=== PATIENT | female | born 1960 | race Caucasian/White ===

== ENCOUNTER 2023-08-11 00:06 | Emergency (ER) | payer OTHER, SELFPAY ==
[2023-08-11 00:18] VITALS: BP 108/80
[2023-08-11 00:51] LABS: % Basophils 0.5 % (0-2); % Eosinophils 1.3 % (0-6); % Immature Granulocytes 1.1 % (0-0.5); % Lymphocytes 23.2 % (20.5-51.1); % Monocytes 9.1 % (1.7-9.3); % Neutrophils 64.8 % (42.2-75.2); Absolute Eosinophils 0.1 10^3/uL (0-0.7); Absolute Lymphocytes 0.9 10^3/uL (1.2-3.4); Absolute Monocytes 0.3 10^3/uL (0.1-0.6); Absolute Neutrophils 2.4 10^3/uL (1.4-6.5); Hematocrit 32.2 % (37.0-47.0); Hemoglobin 10.9 g/dL (12.0-16.0); Mean Corp Hgb Conc. 33.9 g/dL (33.0-37.0); Mean Corpuscular Hgb 28.5 pg (27.0-31.0); Mean Corpuscular Volume 84.1 fL (81.0-99.0); Mean Platelet Volume 10.8 fL (7.4-10.4); Nucleated Red Blood Cells % 0 %; Platelet Count 162 10^3/uL (130-400); Red Blood Cell Count 3.83 10^6/uL (4.20-5.40); Red Cell Dist. Width 13.6 % (11.5-14.5); White Blood Cell Count 3.8 10^3/uL (4.8-10.8)
[2023-08-11 00:58] LABS: ALT (SGPT) 18 U/L (0-35); AST (SGOT) 30 U/L (14-36); Albumin 3.8 g/dl (3.5-5.0); Alkaline Phosphatase 67 U/L (38-126); Blood Urea Nitrogen 18 mg/dl (7-17); Calcium 9.3 mg/dl (8.4-10.2); Carbon Dioxide 26 mmol/L (22-30); Chloride 104 mmol/L (98-107); Glucose 94 mg/dl (70-99); Potassium 4.1 mmol/L (3.5-5.1); Sodium 135 mmol/L (135-145); Total Protein 6.5 g/dl (6.3-8.2); eGFR > 60.00
[2023-08-11 00:59] LABS: Lactic Acid 0.7 mmol/L (0.7-2.0)
[2023-08-11 01:26] VITALS: BP 129/68
[2023-08-11 01:30] VITALS: BMI 26.0
--- NOTE | 2023-08-11 01:53 | ED.GENMED ---
History of Present Illness
<LYLE Robbins - Last Filed: 08/11/23 05:36>
General
Chief Complaint: Fever
Source: patient
Exam Limitations: none
Time Seen by Provider: 08/11/23 01:20
Nursing documentation reviewed up to this point in time: agreed with
Travel History
Have you had any contact with someone who has COVID-19?: No
Do you have any symptoms of coronavirus? Fever > 100 degrees, chills, cough, shortness of breath, sore throat, loss of taste or smell, muscle aches, or headache?: No
History of Present Illness
History of Present Illness:
Patient is 62 y/o female with TKA 3 days for OA ago presenting with new onset fever x 1 day. patient admits that tmax taken at home was 100.4. Patient admits that she has had associated chills. Patient states she has had an onset of a cough that she
describes as 'loose'. patient states she has been feeling nasal congestion with clear rhinorrhea. patient admits to mild nausea. Patient denies no swelling of her lower extremity out side of her knee, patient denies SOB, V/D/C, abdominal pain.
Patents current temperature is 100.1.
Past History
<LYLE Robbins - Last Filed: 08/11/23 05:36>
Past History
ED Past Medical History: HTN and Hypothyroidism
Social History
Tobacco: Non-smoker
Alcohol: Occasional
Drug: None
Personal:
Living: with family
Review of Systems
<LYLE Robbins - Last Filed: 08/11/23 05:36>
Review of Systems
Constitutional: Reports fever and chills
EENT: Reports sore throat and runny nose (clear rhinorrhea)
Respiratory: Reports cough
ABD/GI: Reports nausea
Musculoskeletal: Reports joint swelling and other (post op TKA )
Phy Exam
<LYLE Robbins - Last Filed: 08/11/23 05:36>
Physical Exam
Physical Exam:
mild erythema noted around incision bandage
ENT Exam
Additional ENT: nasal congestion with clear rhinorrhea
Musculoskeletal Exam
Musculoskeletal Exam: joint swelling
Skin Exam
Skin Exam: warm/dry, erythema (R knee outside are of bandage ) and warmth (R knee )
Course
<LYLE Robbins - Last Filed: 08/11/23 05:36>
Orders/Labs/Results
Orders:
Orders
08/11/23 00:22
Electrocardiogram (*1) Urgent
Reason for Study: Other
Other Reason for Exam: Possible Sepsis
08/11/23 00:23
EKG- Treatment ONCE
CR Chest - 2 Views Urgent
Comment:
Reason For Exam: suspected infection
08/11/23 00:33
Complete Blood Count/With Diff Urgent
Comprehensive Metabolic Panel Urgent
Lactic Acid Q4H
Comment: ON ICE, CANCEL 2ND ORDER IF FIRST LACTIC ACID LEVEL <2
Blood Culture Q30M
FADY Source: Blood/Venous
Specimen Description:
Comment: FROM 2 SEPARATE SITES
08/11/23 01:00
Blood Culture Q30M
FADY Source: Blood/Venous
Specimen Description:
Comment: FROM 2 SEPARATE SITES
08/11/23 02:10
COVID-19 Antigen Urgent
Source: Nasal Swab
Influenza A+B Rapid Molecular Urgent
FADY Source: Nasal Swab
Specimen Description:
08/11/23 03:21
Ipratropium/Albuterol Sulfate [Duoneb] 3 ml INH R NOW ONE
Abnormal Lab Results
08/11/23
00:33
WBC 3.8 L 10^3/uL
(4.8-10.8)
RBC 3.83 L 10^6/uL
(4.20-5.40)
Hgb 10.9 L g/dL
(12.0-16.0)
Hct 32.2 L %
(37.0-47.0)
MPV 10.8 H fL
(7.4-10.4)
Absolute Lymphs (auto) 0.9 L 10^3/uL
(1.2-3.4)
Immature Gran % 1.1 H %
(0-0.5)
BUN 18 H mg/dl
(7-17)
08/11/23 00:33
08/11/23 00:33
Vital Signs
Initial and Last Documented VS:
Initial Vital Signs
Temp Pulse Resp BP Pulse Ox
100.1 F 100 24 108/80 98
08/11/23 00:18 08/11/23 00:18 08/11/23 00:18 08/11/23 00:18 08/11/23 00:18
Last Documented Vital Signs
Temp Pulse Resp BP Pulse Ox
98.9 F 78 18 129/83 98
08/11/23 04:30 08/11/23 04:30 08/11/23 04:30 08/11/23 04:30 08/11/23 04:30
Sandylt;Luis Lopez, DO - Last Filed: 08/11/23 04:09>
Orders/Labs/Results
Orders:
Orders
08/11/23 00:22
Electrocardiogram (*1) Urgent
Reason for Study: Other
Other Reason for Exam: Possible Sepsis
08/11/23 00:23
EKG- Treatment ONCE
CR Chest - 2 Views Urgent
Comment:
Reason For Exam: suspected infection
08/11/23 00:33
Complete Blood Count/With Diff Urgent
Comprehensive Metabolic Panel Urgent
Lactic Acid Q4H
Comment: ON ICE, CANCEL 2ND ORDER IF FIRST LACTIC ACID LEVEL <2
Blood Culture Q30M
FADY Source: Blood/Venous
Specimen Description:
Comment: FROM 2 SEPARATE SITES
08/11/23 01:00
Blood Culture Q30M
FADY Source: Blood/Venous
Specimen Description:
Comment: FROM 2 SEPARATE SITES
08/11/23 02:10
COVID-19 Antigen Urgent
Source: Nasal Swab
Influenza A+B Rapid Molecular Urgent
FADY Source: Nasal Swab
Specimen Description:
08/11/23 03:21
Ipratropium/Albuterol Sulfate [Duoneb] 3 ml INH R NOW ONE
Abnormal Lab Results
08/11/23
00:33
WBC 3.8 L 10^3/uL
(4.8-10.8)
RBC 3.83 L 10^6/uL
(4.20-5.40)
Hgb 10.9 L g/dL
(12.0-16.0)
Hct 32.2 L %
(37.0-47.0)
MPV 10.8 H fL
(7.4-10.4)
Absolute Lymphs (auto) 0.9 L 10^3/uL
(1.2-3.4)
Immature Gran % 1.1 H %
(0-0.5)
BUN 18 H mg/dl
(7-17)
08/11/23 00:33
08/11/23 00:33
Vital Signs
Initial and Last Documented VS:
Initial Vital Signs
Temp Pulse Resp BP Pulse Ox
100.1 F 100 24 108/80 98
08/11/23 00:18 08/11/23 00:18 08/11/23 00:18 08/11/23 00:18 08/11/23 00:18
Last Documented Vital Signs
Temp Pulse Resp BP Pulse Ox
98.9 F 78 18 129/83 98
08/11/23 04:30 08/11/23 04:30 08/11/23 04:30 08/11/23 04:30 08/11/23 04:30
<LYLE Robbins - Last Filed: 08/11/23 05:36>
MDM/Problems Addressed
Differential Diagnosis Includes:
viral sinusitis
influenza
COVID
post op wound infection
MDM/Problems Addressed:
fever
Chronic conditions affecting care:
post op TKA
<LYLE Robbins - Last Filed: 08/11/23 05:36>
*Critical Care Note
Total Time (30-74mins, 75-104mins- exclusive of procedures): Not Applicable
<Luis Lopez DO - Last Filed: 08/11/23 04:09>
Update Note
Update Note:
Chest x-ray is normal. Patient felt improvement after breathing treatment. I will prescribe an albuterol inhaler. She will get cough drops. We did discuss the slight redness around her OpSite. For now I feel that is postsurgical change. She we
will discuss this with her orthopedic surgeon. She will return to the ER with any fevers or signs of cellulitis, as we discussed. Patient being discharged in improved condition.
ED Attending Note
<LYLE Robbins - Last Filed: 08/11/23 05:36>
-
Portions of this chart may have been created with voice recognition software.� Occasional wrong word or��sound alike� substitutions may have occurred due to the inherent limitations of voice recognition software.
Discharge Plan
Departure
Patient Disposition: Home (Routine Discharge)
Date of Disposition: 08/11/23
Time of Disposition: 04:06
Patient with high blood pressure during this ER visit?: No
Condition: Good
Discharge Problem:
Acute viral syndrome
Instructions: Wound Care (DC), Fever, Adult (DC), Viral Syndrome (DC)
Prescriptions:
New
albuterol sulfate [ProAir HFA] 90 mcg/actuation Hfa Aerosol Inhaler
1 puff INHALATION Q4HPRN PRN (Reason: shortness of breath) Qty: 8.5 0RF
benzonatate 100 mg capsule
100 mg PO TID PRN (Reason: Cough) Qty: 14 0RF
No Action
celecoxib [Celebrex] 200 mg Capsule
200 mg PO BID
calcium carbonate 250 mg Tablet,Chewable
750 mg PO Q4 PRN (Reason: heartburn)
polyethylene glycol 3350 [Miralax] 17 gram Powder In Packet
17 g PO QHS
ondansetron HCl [Zofran] 4 mg Tablet
4 mg PO Q6H PRN (Reason: nausea)
tramadol 50 mg Tablet
50 mg PO Q6H PRN (Reason: pain)
Rx Instructions:
1-2 tablets as needed
acetaminophen 500 mg Tablet
1,000 mg PO Q8H
diphenhydramine HCl [Benadryl] 25 mg Capsule
25 mg PO Q6 PRN (Reason: itching)
Rx Instructions:
1-2 capsules
docusate sodium 100 mg Capsule
100 mg PO BID
omeprazole [Prilosec] 20 mg Capsule,Delayed Release(Dr/Ec)
20 mg PO DAILY
aspirin 81 mg Tablet
81 mg PO DAILY
metoprolol succinate 25 mg Tablet Extended Release 24 Hr
25 mg PO DAILY
levothyroxine 112 mcg Tablet
112 mcg PO DAILY
oxycodone 5 mg Tablet
5 mg PO Q4H PRN (Reason: pain)
Rx Instructions:
1-2 tablets q4-6 for pain
rosuvastatin 20 mg Tablet
20 mg PO DAILY
gabapentin 100 mg Tablet
100 mg PO TID
hydrochlorothiazide 12.5 mg Tablet
12.5 mg PO DAILY
Referrals:
Alli Yan DO [Family Provider] -
Activity Restrictions/Additional Instructions:
It was a pleasure meeting you and taking part in your care. We hope for your continued healing and wellness.
Please read discharge instructions in their entirety. However, they are for general education and may not describe your exact diagnosis at discharge. Information on your ER visit and medical conditions were discussed with you along with appropriate
follow up information...
If indicated, please take your medications as instructed and indicated on discharge paperwork.
Please schedule a follow up appointment as directed. Call to schedule an appointment
Please return to the emergency department with ANY change in, persisting, or worsening of symptoms. If any of your symptoms do not improve, or persist, or become more severe within 6-12 hours, please return to the emergency department for further
care.
Please return to the emergency department if you develop a headache, neck pain/stiffness, fever greater than 100.4F, chest pain, shortness of breath, persistent nausea, vomiting, slurred speech, difficulty walking, numbness/tingling, weakness, signs
of infection or any other symptoms that are worrisome to you.
If you have any questions or concerns please do not hesitate to call the Hospital at or E-mail me directly at [email or web address]
Interventions
Interventions:
*Risk Screen - Suicide Last Done: 08/11/23 00:18
*General Assessment Last Done: 08/11/23 01:41
*Neglect/Abuse Screening Last Done: 08/11/23 00:18
ED- Fall Risk Assessment Last Done: 08/11/23 03:30
*ED COVID-19 Vaccine History Last Done: 08/11/23 01:30
*Nursing Disposition Last Done: 08/11/23 04:30
ED- Neurological Assessment Last Done: 08/11/23 01:41
ED-Skin Assessment Last Done: 08/11/23 01:41
Discharge Date and Time
Discharge Date/Time: 08/11/23 04:31
[2023-08-11 02:00] VITALS: BP 119/80
[2023-08-11 02:56] LABS: COVID-19 Antigen Negative (Negative)
[2023-08-11 03:00] VITALS: BP 125/71
[2023-08-11] MEDS: DUONEB 3 ML INH (03:28)
[2023-08-11 04:00] VITALS: BP 129/83
--- NOTE | 2023-08-11 04:29 | EDRN ---
Reviewed discharge instructions with patient.Verbalized understanding. Taken to lobby in wheelchair.
[2023-08-11 04:30] VITALS: BP 129/83
== END 2023-08-11 04:31 | disposition home or self-care (01) ==
LOC: EMR 00:06
PROVIDERS: Emergency Medicine; EMERGENCY PHYSICIAN Student in an Organized Health Care Education/Training Program; FAMILY PHYSICIAN Family Medicine
DX: B34.9 Viral infection, unspecified (principal); Z11.52 Encounter for screening for COVID-19
CPT/HCPCS: 99284; 94640; 71046; 80053; 83605; 85025; 87040; 87502; 87811

== ENCOUNTER → 2023-12-25 08:12 | Outpatient (REF) | payer OTHER, SELFPAY | LOC: WDC 08:12 | PROVIDERS: ATTENDING PHYSICIAN Obstetrics & Gynecology; FAMILY PHYSICIAN Family Medicine | DX: Z12.31 Encounter for screening mammogram for malignant neoplasm of breast (principal) | CPT/HCPCS: 77063; 77067 ==

== ENCOUNTER → 2024-01-09 09:17 | Outpatient (REF) | payer OTHER, SELFPAY | LOC: RCS 09:17 | PROVIDERS: ATTENDING PHYSICIAN Internal Medicine; FAMILY PHYSICIAN Family Medicine | DX: I10 Essential (primary) hypertension (principal) | CPT/HCPCS: 93306 ==

== ENCOUNTER → 2024-10-21 08:48 | Outpatient (REF) | payer OTHER, SELFPAY | LOC: RAD 08:48 | PROVIDERS: ATTENDING PHYSICIAN Internal Medicine Endocrinology, Diabetes & Metabolism; FAMILY PHYSICIAN Family Medicine | DX: Z78.0 Asymptomatic menopausal state (principal) | CPT/HCPCS: 77080 ==

== ENCOUNTER → 2024-12-29 08:38 | Outpatient (REF) | payer OTHER, SELFPAY | LOC: WDC 08:38 | PROVIDERS: ATTENDING PHYSICIAN Obstetrics & Gynecology; FAMILY PHYSICIAN Family Medicine | DX: Z12.31 Encounter for screening mammogram for malignant neoplasm of breast (principal) | CPT/HCPCS: 77063; 77067 ==

== ENCOUNTER 2025-01-03 11:52 | Emergency (ER) | payer OTHER, SELFPAY ==
[2025-01-03] VITALS (8 sets, daily range): BP systolic 120–187; BP diastolic 86–106; BMI 26.5
[2025-01-03 12:48] LABS: Glucose - Point of Care 98 mg/dl (70-99)
--- NOTE | 2025-01-03 13:11 | CON.NEURO4 ---
Addendum entered and electronically signed by Horacio Murry MD 01/03/25 16:05:
Studies reviewed.
I have personally examined the patient. I reviewed and agree with the STUDENT SUPPORT ADVISOR's Note.
My addenda:
Awake, alert, interactive. No acute distress.
Speech intact.
Follows 2-step requests w/o difficulty. No tremor.
Extra-ocular movements grossly intact.
Facial movements full and symmetric. Hearing intact to normal conversational volume.
Normal UE movements bilaterally.
Neck: full ROM.
Chest: no dyspnea
Heart: no JVD
Ext: (-) Clubbing, (-) Cyanosis, (-) Edema
IMPRESSIONS/RECOMMENDATIONS:
Abrupt onset of headache followed by visual change in bilateral eyes also associated with photophobia
Most likely the patient is experiencing migraine with aura although she has not experienced same previously. Prior headaches were described as tension type with the patient having worsening of additional symptoms including dizziness in the last 10
days.
Provide antimigraine therapies
Agree with the patient being provided with rizatriptan 10 mg daily with repeat times 1 after one hour as needed, as outpatient
Patient should undergo as an outpatient MRI of the brain for completeness
Check CT A head and neck to determine if critical stenosis is producing symptoms
D/W patient / family / nursing
All questions answered.
Will continue to follow as outpatient.
Original Note:
Consultation - Neurology 4
-
CONSULTING PHYSICIAN: Dr. Horacio Murry
REFERRING PHYSICIAN: Dr. Judah Benz
DICTATED BY: DONYA Camacho
DATE/TIME OF REQUEST: 01/03/2025
DATE/TIME OF CONSULTATION: 01/03/2025
Reason for Consultation: stroke alert/headache
History of Present Illness:
This is a 64 year old right handed female patient who presented to the ER with vision changes and headache.
Patient reports she went to sleep last night in her usual state of health and woke up at 4 AM and felt fine. When she woke up this a.m. around 8 AM she woke up with significant headache. She did not take any medication for this. Around 1030 this
morning she noted vision changes. She reports she was looking at her daughter and could not see half her face. Vision changes lasted about 45 minutes. She reports headache is about 7 out of 10 and throbbing. She reports it is bitemporal and
frontal. No light sensitivity but she is nauseous. She does report chronic light sensitivity. She reports she does get occasional headaches but they are not frequent, however, the past 2 or 3 weeks she has reported an increase in headaches. She
usually takes Excedrin and this is helpful. Today she also reported associated trouble with speech and finding her words. This does not usually happen with other headaches. She also admits to dizziness for about 10 days which is worse today. She
denies ever having similar symptoms in the past. She denied any weakness, numbness or tingling. She denied any neck or back pain. She denies any trouble walking. Of note she did have elevated blood pressure upon arrival to the ER 163/101. Which
is unusual for her. No history of stroke.
Past Medical History: Hypothyroidism, GERD, vitamin D deficiency, cervical degenerative disc disease, generalized anxiety disorder, esophagitis left knee arthritis
Surgical History: Hernia repair, , carpal tunnel release 2009 right shoulder arthroscopy, subacromial decompression, biceps tenolysis and rotator cuff repair 2017, right knee arthroscopy and medial meniscectomy 2021, right knee replacement
2023
Family History: Father-CAD, diabetes, mother-hypertension, migraines
Social History: Patient is lives with denies smoking or alcohol use
Allergies: NKDA
Home Medications: see below
Review of Symptoms:
Patient denies any fever, chest pain, shortness of breath, GI or symptoms.
Vital Signs: see below
Physical Exam:
The patient is afebrile, heart sounds S1 and S2 are regular, no SOB.
Neurologic Examination:
The patient is awake, alert and oriented x 3. She is able to follow commands and answer questions appropriately. There is no aphasia or dysarthria. On cranial nerve assessment, pupils are 3 mm bilateral, round and reactive to light and
accommodation. Visual meza are full. Extraocular movements are intact. Facial sensations are intact and bilaterally symmetrical, there is no facial asymmetry. Hearing is intact bilaterally to normal conversation volume. Tongue palate and uvula are
midline. Sternocleidomastoid strengths are full bilaterally. Motor strengths are 5/5 bilateral upper and lower extremities on medical research Diomede scale. There is no drift or involuntary movement noted. Deep tendon reflexes are 2+ bilateral
upper and lower extremities and Babinski is absent bilaterally. Sensation of light touch is intact and bilaterally symmetrical. There was no extinction noted on double simultaneous stimulation. Coordination is intact by finger to nose bilaterally.
Lab Results: see below
Neuro Imaging:
CT Head 01/03/2025
No acute intracranial abnormality.
CTA head and neck 01/03/2025
No large vessel occlusions, dissections, or aneurysms appreciated.
Impression:
SOLANGE CARRION is a 64 year old F who has presented to the hospital with headache and vision changes likely migraine with aura, less likely stroke/TIA
Recommendations:
-Give 10 mg Metoclopramide IV now
-give rizatriptan 10 mg po now
-can also give Toradol/Benadryl if needed
-monitor headache and if improved patient can be discharged to home, outpatient follow up with neurology 4-6 weeks
-if symptoms do not improve or worsen may need to consider MRI brain.
Discussed patient care with patient, , Dr. Benz and neirologist
Medication and Allergies
Home Medications
Home Medications
�Medication �Instructions �Recorded
acetaminophen 500 mg tablet 1,000 mg PO Q8H 08/11/23
albuterol sulfate 90 mcg/actuation 1 puff inhalation Q4HPRN PRN 08/11/23
aerosol inhaler (ProAir HFA) shortness of breath #8.5 grams
aspirin 81 mg tablet 81 mg PO DAILY 08/11/23
benzonatate 100 mg capsule 100 mg PO TID PRN Cough #14 caps 08/11/23
calcium carbonate 250 mg chewable 750 mg PO Q4 PRN heartburn 08/11/23
tablet
celecoxib 200 mg capsule (Celebrex) 200 mg PO BID 08/11/23
diphenhydramine HCl 25 mg capsule 25 mg PO Q6 PRN itching 08/11/23
(Benadryl)
docusate sodium 100 mg capsule 100 mg PO BID 08/11/23
gabapentin 100 mg tablet 100 mg PO TID 08/11/23
hydrochlorothiazide 12.5 mg tablet 12.5 mg PO DAILY 08/11/23
levothyroxine 112 mcg tablet 112 mcg PO DAILY 08/11/23
metoprolol succinate 25 mg 25 mg PO DAILY 08/11/23
tablet,extended release 24 hr
omeprazole 20 mg capsule,delayed 20 mg PO DAILY 08/11/23
release
ondansetron HCl 4 mg tablet 4 mg PO Q6H PRN nausea 08/11/23
oxycodone 5 mg tablet 5 mg PO Q4H PRN pain 08/11/23
polyethylene glycol 3350 17 gram 17 g PO QHS 08/11/23
oral powder packet (Miralax)
rosuvastatin 20 mg tablet 20 mg PO DAILY 08/11/23
tramadol 50 mg tablet 50 mg PO Q6H PRN pain 08/11/23
Allergies
Allergies
Allergy/AdvReac Type Severity Reaction Status Date / Time
No Known Allergies Allergy Verified 01/03/25 12:01
Vital Signs / Labs
-
Vital Signs and Labs:
Temp Pulse Resp BP Pulse Ox
98.4 F 57 22 120/98 97
01/03/25 12:01 01/03/25 13:15 01/03/25 13:15 01/03/25 13:08 01/03/25 13:15
01/03/25 12:48
01/03/25 12:48
01/03/25
12:48
WBC 3.9 L
MCH 26.6 L
MCHC 32.0 L
MPV 10.7 H
Monocytes % 9.9 H
BUN 18 H
[2025-01-03 13:12] LABS: ALT (SGPT) 21 U/L (0-35); AST (SGOT) 21 U/L (14-36); Albumin 4.4 g/dl (3.5-5.0); Alkaline Phosphatase 63 U/L (38-126); Blood Urea Nitrogen 18 mg/dl (7-17); Calcium 10.2 mg/dl (8.4-10.2); Carbon Dioxide 27 mmol/L (22-30); Chloride 107 mmol/L (98-107); Glucose 96 mg/dl (70-99); INR 1.00; PT 13.5 Sec (11.4-14.6); Potassium 4.5 mmol/L (3.5-5.1); Sodium 138 mmol/L (135-145); Total Protein 7.0 g/dl (6.3-8.2); eGFR > 60.00
[2025-01-03 13:13] LABS: APTT 31.0 Sec (23.4-35.0)
[2025-01-03] MEDS: REGLAN 10 MG IV (13:14)
[2025-01-03 13:25] LABS: Hematocrit 38.1 % (37.0-47.0); Hemoglobin 12.2 g/dL (12.0-16.0); Mean Corp Hgb Conc. 32.0 g/dL (33.0-37.0); Mean Corpuscular Volume 83.2 fL (81.0-99.0); Nucleated Red Blood Cells % 0 %; Platelet Count 185 10^3/uL (130-400); Red Cell Dist. Width 13.9 % (11.5-14.5); Troponin I < 0.012 ng/ml
[2025-01-03] MEDS: MAXALT MLT (ORALLY DISINTEGRATING) 10 MG PO (13:43)
[2025-01-03] MEDS: NSS 250 IV (13:45)
--- NOTE | 2025-01-03 15:54 | ED.CVA ---
History of Present Illness
General
Chief Complaint: CVA/TIA Symptoms
Source: patient
Exam Limitations: none
Time Seen by Provider: 01/03/25 12:39
Nursing documentation reviewed up to this point in time: agreed with
Onset of Stroke Symptoms
Onset of symptoms known: Yes
Date of onset of symptoms: 01/03/25
History of Present Illness
History of Present Illness:
Patient presents to ED secondary to worsening headache over the past 1 week, which feels worse since waking up this morning. Approxi-1 hour prior to arrival, patient started to experience difficulty verbalizing along with visual field deficit.
Since then, both of her symptoms have improved significantly. Denies dizziness. Denies blurred vision. Denies loss of sensation or weakness. Denies difficulty with swallowing. Denies difficulty with ambulation. Denies previous history of
similar symptoms. Denies recent illness. Denies recent change in medications or diet. Denies recent travel. Patient states that she typically does not get headaches often.
Past History
Past History
ED Past Medical History: HTN and Hypothyroidism
Social History
Tobacco: Non-smoker
Alcohol: Occasional
Drug: None
Personal:
Living: with family
Review of Systems
Review of Systems
Allergies reviewed?: Yes
All Other Systems: ROS reviewed and negative except as documented in HPI and ROS
Constitutional: Reports no symptoms
Respiratory: Reports no symptoms
Cardiac: Reports no symptoms
ABD/GI: Reports no symptoms
Musculoskeletal: Reports no symptoms
Skin: Reports no symptoms
Neurological: Reports headache and other (visual field deficit, expressive aphasia)
Phy Exam
Physical Exam
Physical Exam:
Physical Exam
General: mild painful distress, not acutely ill. afebrile.
Head: nc/at. eomi
Neck: supple. normal range of motion.
Heart: s1/s2 regular rate and rhythm
Lungs: no acute respiratory distress. clear bilaterally
Abdomen: normal bowel sounds. not tender.
Neuro: alert and oriented x 3. no focal neurological deficits. normal speech
Skin: no rash
Psychiatric: well kept. interactive and cooperative
Extremities: no edema. no calf tenderness.
Course
Orders/Labs/Results
Orders:
Orders
01/03/25 12:46
Electrocardiogram (*1) Urgent
Reason for Study: Other
Other Reason for Exam: Possible Stroke
CT HEAD STROKE ALERT W/o Cont Urgent
Comment:
Reason For Exam: headache
Bedside Glucose- Treatment ONCE
Cardiac Monitoring- Treatment ONCE
IV Insert/Care/Rem.- Treatment PRN
Vital Signs As Directed
Frequency: Other
Weight As Directed
Frequency: Once
Comment: ZERO STRETCHER SCALE FOR ACCURATE WEIGHT
01/03/25 12:47
EKG- Treatment ONCE
01/03/25 12:48
Complete Blood Count/With Diff Urgent
Comprehensive Metabolic Panel Urgent
PTT Urgent
Prothrombin Time Urgent
Troponin I Urgent
01/03/25 12:58
CT HEAD/NECK ANG STROKE ALERT Stat
Comment:
Reason For Exam: stenosis
01/03/25 13:02
Metoclopramide [Reglan] 10 mg IV ONCE ONE
01/03/25 13:20
Rizatriptan Orally Disintegrat [Maxalt Equal Opportunity Representative (Orally Disintegrating)] 10 mg PO ONCE ONE
01/03/25 13:29
0.9% Sodium Chloride 250 ml [Nss] 250 ml IV BOLUS
Abnormal Lab Results
01/03/25
12:48
WBC 3.9 L 10^3/uL
(4.8-10.8)
MCH 26.6 L pg
(27.0-31.0)
MCHC 32.0 L g/dL
(33.0-37.0)
MPV 10.7 H fL
(7.4-10.4)
Monocytes % 9.9 H %
(1.7-9.3)
BUN 18 H mg/dl
(7-17)
01/03/25 12:48
01/03/25 12:48
Vital Signs
Initial and Last Documented VS:
Initial Vital Signs
Temp Pulse Resp BP Pulse Ox
98.4 F 59 18 152/91 100
01/03/25 12:01 01/03/25 12:01 01/03/25 12:01 01/03/25 12:01 01/03/25 12:01
Last Documented Vital Signs
Temp Pulse Resp BP Pulse Ox
98.4 F 58 20 150/89 99
01/03/25 12:01 01/03/25 15:49 01/03/25 15:49 01/03/25 16:14 01/03/25 15:55
MDM/Problems Addressed
MDM/Problems Addressed:
Stroke alert activated immediately upon arrival. Patient evaluated by Dr. Murry who feels that patient's symptoms are secondary to migraine headache with aura. Medications ordered by Dr. Murry, who feels that pt can be discharged home, if headache
is improved with treatment
After treatment, patient reports significant improvement symptoms. Patient feels comfortable going home at this time, and will follow-up with PCP or Dr. Murry as an outpatient. Patient advised to return to ED with worsening or recurrent symptoms.
Patient and spouse expressed understanding at time of discharge.
*Pulse Oximetry
SaO2: 99
Oxygen Mode of Delivery: Room air
Patient hypoxic: no
*Critical Care Note
Total Time (30-74mins, 75-104mins- exclusive of procedures): Not Applicable
ED Attending Note
-
Portions of this chart may have been created with voice recognition software.� Occasional wrong word or��sound alike� substitutions may have occurred due to the inherent limitations of voice recognition software.
Discharge Plan
Departure
Patient Disposition: Home (Routine Discharge)
Date of Disposition: 01/03/25
Time of Disposition: 16:05
Patient with high blood pressure during this ER visit?: Yes
Condition: Good
Discharge Problem:
Headache
Instructions: Headache, Adult (DC)
Prescriptions:
New
rizatriptan 10 mg tablet
10 mg PO PRN PRN (Reason: headache) Qty: 14 0RF
No Action
celecoxib [Celebrex] 200 mg Capsule
200 mg PO BID
calcium carbonate 250 mg Tablet,Chewable
750 mg PO Q4 PRN (Reason: heartburn)
polyethylene glycol 3350 [Miralax] 17 gram Powder In Packet
17 g PO QHS
ondansetron HCl [Zofran] 4 mg Tablet
4 mg PO Q6H PRN (Reason: nausea)
tramadol 50 mg Tablet
50 mg PO Q6H PRN (Reason: pain)
Rx Instructions:
1-2 tablets as needed
acetaminophen 500 mg Tablet
1,000 mg PO Q8H
diphenhydramine HCl [Benadryl] 25 mg Capsule
25 mg PO Q6 PRN (Reason: itching)
Rx Instructions:
1-2 capsules
docusate sodium 100 mg Capsule
100 mg PO BID
omeprazole [Prilosec] 20 mg Capsule,Delayed Release(Dr/Ec)
20 mg PO DAILY
aspirin 81 mg Tablet
81 mg PO DAILY
metoprolol succinate 25 mg Tablet Extended Release 24 Hr
25 mg PO DAILY
levothyroxine 112 mcg Tablet
112 mcg PO DAILY
oxycodone 5 mg Tablet
5 mg PO Q4H PRN (Reason: pain)
Rx Instructions:
1-2 tablets q4-6 for pain
rosuvastatin 20 mg Tablet
20 mg PO DAILY
gabapentin 100 mg Tablet
100 mg PO TID
hydrochlorothiazide 12.5 mg Tablet
12.5 mg PO DAILY
albuterol sulfate [ProAir HFA] 90 mcg/actuation Hfa Aerosol Inhaler
1 puff INHALATION Q4HPRN PRN (Reason: shortness of breath) Qty: 8.5 0RF
benzonatate 100 mg capsule
100 mg PO TID PRN (Reason: Cough) Qty: 14 0RF
Referrals:
Horacio Murry MD [Active, Neurology]
Alli Yan DO [Family Provider, Family Practice]
Activity Restrictions/Additional Instructions:
As discussed, please follow-up with your primary care physician and/or referred to neurologist for further evaluation and treatment. Please consider return to ED with recurrent symptoms. Your prescription has been sent electronically to [facility]
pharmacy in [place].
Interventions
Interventions:
*Risk Screen - Suicide Last Done: 01/03/25 12:01
*General Assessment Last Done: 01/03/25 12:01
*Neglect/Abuse Screening Last Done: 01/03/25 12:01
*Nursing Disposition Last Done: 01/03/25 16:21
ED- Cardiac Assessment Last Done: 01/03/25 13:32
ED- Neurological Assessment Last Done: 01/03/25 13:32
ED- Pulmonary Assessment Last Done: 01/03/25 13:32
ED Swallowing Screen Last Done: 01/03/25 13:31
Discharge Date and Time
Discharge Date/Time: 01/03/25 16:21
Print Language: WELSH
== END 2025-01-03 16:21 | disposition home or self-care (01) ==
LOC: EMR 11:52
PROVIDERS: EMERGENCY PHYSICIAN Emergency Medicine; FAMILY PHYSICIAN Family Medicine
DX: R51.9 Headache, unspecified (principal); E03.9 Hypothyroidism, unspecified; I10 Essential (primary) hypertension; Z79.890 Hormone replacement therapy; Z82.49 Family history of ischemic heart disease and other diseases of the circulatory system; Z83.3 Family history of diabetes mellitus; Z96.651 Presence of right artificial knee joint
CPT/HCPCS: 99284; 96374; 96361; 70450; 70496; 70498; 80053; 82962; 84484; 85025; 85610; 85730; 93005; Q9967

== ENCOUNTER → 2025-02-24 09:19 | Outpatient (REF) | payer OTHER, SELFPAY | LOC: RCS 09:19 | PROVIDERS: ATTENDING PHYSICIAN Nurse Practitioner; FAMILY PHYSICIAN Family Medicine | DX: I77.810 Thoracic aortic ectasia (principal) | CPT/HCPCS: 93306 ==

== ENCOUNTER → 2025-03-28 07:11 | Outpatient (REF) | payer OTHER, SELFPAY | LOC: MRI 3T 07:11 | PROVIDERS: ATTENDING PHYSICIAN Family Medicine | DX: Z09 Encounter for follow-up examination after completed treatment for conditions other than malignant neoplasm (principal); G43.109 Migraine with aura, not intractable, without status migrainosus | CPT/HCPCS: 70551 ==